=== PATIENT | female | born 2000 | race Caucasian/White ===

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

== ENCOUNTER 2019-12-01 18:10 | Emergency (ER) | payer SELFPAY ==
[~2019-12-01] VITALS: Ht 160 cm; Wt 61.2 kg
[2019-12-01 18:16] VITALS: BP_SYST 125
[2019-12-01] MEDS: ACETAMINOPHEN 500 MG TABLET PO ONE (18:29)
[2019-12-01] MEDS: IPRATROPIUM/ALBUTEROL SULFATE 3 ML AMPUL.NEB (DUONEB) INH ONE (19:12)
[2019-12-01 19:27] VITALS: BP_SYST 114
== END 2019-12-01 19:30 | disposition home or self-care (01) ==
LOC: SED 18:10
DX: J45.901 Unspecified asthma with (acute) exacerbation (principal)
CPT/HCPCS: 71045; 81025; 94640; 99283

== ENCOUNTER 2021-08-06 23:04 | Emergency (ER) | payer MEDICAID ==
[~2021-08-06] VITALS: Ht 160 cm; Wt 60.3 kg
[2021-08-06 23:10] VITALS: BP_SYST 118
--- NOTE | 2021-08-06 23:20 | NUR ---
Placed in room 4 . Placed on rv service technician, blood pressure machine and pulse oximeter. To gown for exam. Side rails up. Report given to MARIA DOLORES HESTER(REG).
--- NOTE | 2021-08-06 23:53 | NUR ---
ER at bedside examining patient.
--- NOTE | 2021-08-07 00:15 | NUR ---
Pt is here c/o intermittent 3/10 abd pain and middle chest pain / epigastric pain. No PMH. Pt is AOX4, able to verbalized her needs. Per pt had constipation x 5 days after back from vacation to [place]. Per pt, Pt had binging carb food and sugary alcohol and dessert and gained weight 13 lbs. Pt stated " I feel my face swollen. My legs also swollen." Denies N/V/D/ abnormal activity. VS stable documented. Will continue to monitor. Addendum: 08/07/21 at 0042 by [email or web address] MIR Martel
[2021-08-07 00:30] LABS: HEMOGLOBIN 13.3 g/dL (12.0-16.0); RED BLOOD CELL COUNT(AUTO) 4.45 MIL/uL (4.2-6.2); WHITE BLOOD COUNT (AUTO) 7.3 K/uL (4.8-10.8)
[2021-08-07 00:35] LABS: BASOPHILS # (AUTO) 0.1 K/uL (0.0-0.2); BASOPHILS % (AUTO) 0.8 % (0.0-2.0); EOSINOPHILS # (AUTO) 0.6 K/uL (0.0-0.4); LYMPHOCYTES # (AUTO) 2.8 K/uL (1.0-5.5); LYMPHOCYTES % (AUTO) 38.4 % (20.5-51.5); MEAN CORPUSCULAR HEMOGLOBIN 30 pg (27-31); MEAN CORPUSCULAR HGB CONC 33 % (32-36); MEAN CORPUSCULAR VOLUME 90 fL (79.0-98.0); MONOCYTES # (AUTO) 0.5 K/uL (0.0-1.0); MONOCYTES % (AUTO) 6.5 % (1.7-9.3); NEUTROPHILS # (AUTO) 3.4 K/uL (1.8-7.7); NEUTROPHILS % (AUTO) 46.3 % (40.0-70.0); PLATELET COUNT (AUTO) 180 K/uL (130-430); RED CELL DISTRIBUTION WIDTH 13.4 % (9.0-15.0)
[2021-08-07] MEDS ORDERED: SOTALOL HCL 80 MG TABLET PO ONE (01:00)
[2021-08-07] MEDS ORDERED: clonazePAM 0.5 MG TABLET PO ONE (01:00)
[2021-08-07] MEDS ORDERED: ZOLPIDEM TARTRATE 5 MG TABLET PO ONE (01:00)
[2021-08-07 01:15] LABS: CALCIUM 8.9 mg/dL (8.4-11.0); CREATININE 0.85 mg/dL (0.55-1.30); POTASSIUM 3.6 mmol/L (3.5-5.1)
[2021-08-07 01:21] LABS: TOTAL BILIRUBIN 0.4 mg/dL (0.0-1.0)
[2021-08-07] MEDS: NACL 0.9% 1,000 ML IV ONE (02:19)
[2021-08-07 04:50] VITALS: BP_SYST 121
--- NOTE | 2021-08-07 05:03 | NUR ---
Patient given written and verbal discharge instructions and verbalizes understanding. ER MD discussed with patient the results and treatment provided. Patient in stable condition. ID arm band removed. IV catheter removed intact and dressing applied, no active bleeding. Rx of 0given. Patient educated on pain management and to follow up with PMD. Pain Scale . Opportunity for questions provided and answered. Medication side effect fact sheet provided. Addendum: 08/07/21 at 0504 by [email or web address] MIR Martel
== END 2021-08-07 05:00 | disposition home or self-care (01) ==
LOC: SED 23:04
DX: E86.0 Dehydration (principal); R10.9 Unspecified abdominal pain; J45.909 Unspecified asthma, uncomplicated
CPT/HCPCS: 36415; 76700; 80053; 82550; 85025; 96360; 99284; J7030

== ENCOUNTER 2023-10-05 21:42 | Emergency (ER) | payer MEDICAID ==
[~2023-10-05] VITALS: Ht 162.6 cm; Wt 56.7 kg
[2023-10-05 21:49] VITALS: BP_SYST 134; PULSE 85; RESP 18; TEMP 97.7; O2SAT 100
[2023-10-05 22:23] LABS: BASOPHILS # (AUTO) 0.1 K/uL (0.0-0.2); BASOPHILS % (AUTO) 0.8 % (0.0-2.0); EOSINOPHILS # (AUTO) 0.7 K/uL (0.0-0.4); EOSINOPHILS % (AUTO) 7.8 % (0.0-4.0); HEMATOCRIT 40.7 % (36-48); LYMPHOCYTES # (AUTO) 2.7 K/uL (1.0-5.5); LYMPHOCYTES % (AUTO) 30.8 % (20.5-51.5); MEAN CORPUSCULAR HEMOGLOBIN 30 pg (27-31); MEAN CORPUSCULAR HGB CONC 35 % (32-36); MEAN CORPUSCULAR VOLUME 86 fL (79.0-98.0); MONOCYTES # (AUTO) 0.4 K/uL (0.0-1.0); MONOCYTES % (AUTO) 4.6 % (1.7-9.3); PLATELET COUNT (AUTO) 264 K/uL (130-430); RED BLOOD CELL COUNT(AUTO) 4.73 MIL/uL (4.2-6.2); RED CELL DISTRIBUTION WIDTH 12.5 % (9.0-15.0); WHITE BLOOD COUNT (AUTO) 8.9 K/uL (4.8-10.8)
[2023-10-05] MEDS: methylPREDNISolone SOD SUCC/PF 62.5 MG/ML VIAL IVP ONE (22:28)
[2023-10-05] MEDS: FAMOTIDINE 20 MG TABLET PO ONE (22:28)
[2023-10-05] MEDS: cephALEXin 500 MG CAPSULE PO ONE (22:51)
[2023-10-05 22:54] LABS: ANION GAP 9 (5-15); CALCIUM 9.8 mg/dL (8.4-11.0); CARBON DIOXIDE 28 mmol/L (23-29); CHLORIDE 104 mmol/L (98-107); CREATININE 0.83 mg/dL (0.55-1.30); GFR AFRICAN AMERICAN 108 mL/min (>90); GLUCOSE 107 mg/dL (74-106); POTASSIUM 3.9 mmol/L (3.5-5.1); SODIUM SERUM 141 mmol/L (136-145); UREA NITROGEN, BLOOD 18 mg/dL (8-21)
[2023-10-05 23:10] LABS: GFR NON AFRICAN-AMERICAN 89 mL/min (>90)
[2023-10-05] MEDS ORDERED: CEPH-548 PO (23:17)
[2023-10-05 23:33] VITALS: BP_SYST 134; PULSE 85; RESP 18; TEMP 97.7; O2SAT 100
== END 2023-10-05 23:33 | disposition home or self-care (01) ==
LOC: SED 21:42
DX: L03.115 Cellulitis of right lower limb (principal); R07.89 Other chest pain; F41.9 Anxiety disorder, unspecified; J45.909 Unspecified asthma, uncomplicated; Z79.2 Long term (current) use of antibiotics; Z79.899 Other long term (current) drug therapy
CPT/HCPCS: 36415; 80048; 84484; 85025; 93005; 96374; 99284; J2930